=== PATIENT | male | born 1955 | race Hispanic/Latino ===

== ENCOUNTER 2019-02-06 10:08 | Day surgery (SDC) | payer OTHER ==
[~2019-02-06 10:08] MED LIST: SODIUM CHLORIDE 0.9% 1000 ML 1,000 ML IV SCH
[2019-02-06] MEDS ORDERED: LIDOCAINE MPF (2%) 20 MG/1 ML VIAL 5 ML ONE (11:00)
--- NOTE | 2019-02-06 11:21 | Anesthesia Consultation ---
Anesthesia Consult and Med Hx Date of service: 02/06/19 - Airway Anesthetic Teeth Evaluation: Good ROM Head & Neck: Adequate Mental/Hyoid Distance: Adequate Mallampati Class: Class II Intubation Access Assessment: Good - Pulmonary Exam CTA: Yes - Cardiac Exam Cardiac Exam: RRR - Pre-Operative Health Status ASA Pre-Surgery Classification: ASA3 Proposed Anesthetic Plan: MAC (DM, HTN , SZ, EDWIGE for MAC) - Cardiovascular System Hx Hypertension: Yes - Additional Comments Anesthesia Medical History Comments: DM, HTN, EDWIGE, SZ for MAC
--- NOTE | 2019-02-06 11:22 | Anesthesia Day of Surgery ---
Anesthesia Day of Surgery - Day of Surgery Patient Examined: Yes Patient H&P Reviewed: Yes Patient is NPO: Yes
[2019-02-06] MEDS ORDERED: PROPOFOL 200 MG/20 ML VIAL IV ONE ×2 (11:53)
--- NOTE | 2019-02-06 12:28 | Operative Report ---
PROCEDURE: Esophagogastroduodenoscopy with biopsy. INDICATIONS: This is a 63-year-old white male who has been having GERD symptoms. EGD was done to assess for the severity of the GERD problem. OPERATIVE PROCEDURE: The procedure was done after getting informed consent with MAC anesthesia. Instrument was passed through the hypopharynx into the esophagus, which showed [id number] erosive esophagitis. Biopsy was done from the distal esophagus. The stomach showed antral erosion and gastritis. No peptic ulcer disease was noted. Biopsy was also done from the gastric antrum, gastric body and angular incisura to rule out for H. pylori and atrophic gastritis. There was no gastric ulcers noted in the straight or the retroverted view. The pylorus is patent. The duodenum in the first and second portion appeared normal. There was minimal bleeding associated with the biopsy and no complications associated with the procedure. ASSESSMENT: Gastroesophageal reflux disease symptoms, mild to moderate, distal erosive esophagitis, gastric erosion, gastritis. PLAN: To treat the patient with PPI, to do a colonoscopy as part of colon polyp screening. The patient will be asked to avoid aspirin and aspirin-related products for the next few days. Otherwise, resume home medication and follow up in the office in 1-2 weeks' time. The procedure was done in the GI lab with assistance of the GI lab team, which included Ida Jimenez and the assistance of anesthesia. JOB# [id number] AKANKSHA/LOUISE
--- NOTE | 2019-02-06 12:30 | Procedure Note ---
Date of procedure: 02/06/19 Pre-op diagnosis: GERD/ Colon Polyp Screening/H/O Partial Colon Resection Post-op diagnosis: other (Mild to Moderate Erosive Esophagitis/Gastric Erosion and Gastritis/Solitary,Rectal Polyp (removed)/Scattered Diverticular Disease/Partial Left Colon Resection (for Diverticular Bleeding)) Procedure: EGD with Biopsy and Colonoscopy and Biopsy Anesthesia: [facility] [place] Surgeon: WHIT AMARO Estimated blood loss: minimal Pathology: list Specimen disposition: to lab Condition: stable Disposition: same day (Avoid aspirin and NSAID for 4 days,otherwise resume home medication. Treat with PPI,encourage fiber intake and follow up in 1 to 2 weeks ([phone]).)
--- NOTE | 2019-02-06 12:37 | Post Anesthesia Evaluation ---
- Post Anesthesia Evaluation Patient Participated: Yes Airway Patent: Yes Stable Respiratory Function: Yes Nausea/Vomiting: No Temp > 96.8F: Yes Pain Manageable: Yes Adequeate Hydration: Yes Anesthesia Complications: No Block Receding Appropriately: Not Applicable Patient on Ventilator: No Other Comments: Pt relates he felt the scope insertion and withdrawal for both procedures. [place] conversation. States no discomfort or anxiety from partial awareness. Described experience as "cool."
--- NOTE | 2019-02-06 12:58 | Operative Report ---
PROCEDURE: Colonoscopy with biopsy. INDICATIONS: This is a 63-year-old white male with an underlying history of diabetes mellitus and hypertension, prior history of partial colon resection because of bleeding from diverticular disease. EGD done prior to this procedure showed presence of [id number] erosive esophagitis and gastritis, but no peptic ulcer disease. EGD was done since the patient had complaints of GERD symptoms. Colonoscopy was done as part of colon polyp screening. DESCRIPTION OF PROCEDURE: Procedure was done after getting informed consent with MAC anesthesia. Initial rectal exam was unremarkable. Instrument was passed through the rectum onto the cecum, which was identified with ileocecal valve and the appendiceal orifice. No additional pathology was noted in the retroverted view. The terminal ileum was intubated showed normal mucosa. Visualization was fair to slightly poor. The mucosa was washed with copious amounts of water. There were scattered diverticula noted in the proximal colon, the transverse colon as well as the left colon. In the distal sigmoid, there were surgical signs noted with anastomosis, possibly secondary to removal of partial left colon resection because of his prior history of GI bleeding and the rectum showed 9 mm polyp that was removed by cold biopsy and the rectum did not show any hemorrhoids on the retroverted view. There was minimal bleeding from the biopsy sites and no complications associated with the procedure. ASSESSMENT: Colon polyp screening, solitary rectal polyp noted, removed by cold biopsy. Scattered diverticular disease throughout the colon, partial colon resection involving the sigmoid and the left colon. No internal hemorrhoids noted on the retroverted view. Again, there was minimal bleeding associated with the polypectomy. No complications associated with the procedure. The patient will be asked to avoid aspirin and aspirin-related products for the next 4 days, but otherwise resume home medications. Follow up in the office in 1-2 weeks' time and to encourage fiber supplements and also will be treated with PPI because of the EGD findings of gastric erosion, gastritis, and erosive esophagitis. The procedure was done in the GI lab with assistance of the GI lab team, which included Vinita LAY Regina and assistance of anesthesia. JOB# [id number] AKANKSHA/LOUISE
[2019-02-06 12:59] VITALS: BP 121/74
[2019-02-06] MEDS ORDERED: WATER FOR IRRIG STERILE 250 ML BOTTLE IR ONE (14:36)
== END 2019-02-06 10:09 | disposition home or self-care (01) ==
LOC: GIO 10:08
DX: Z12.11 Encounter for screening for malignant neoplasm of colon (principal); K62.1 Rectal polyp; K29.70 Gastritis, unspecified, without bleeding; K57.30 Diverticulosis of large intestine without perforation or abscess without bleeding; K21.0 Gastro-esophageal reflux disease with esophagitis; I10 Essential (primary) hypertension; E11.9 Type 2 diabetes mellitus without complications; Z72.89 Other problems related to lifestyle; Z79.899 Other long term (current) drug therapy; Z90.49 Acquired absence of other specified parts of digestive tract
CPT/HCPCS: 43239; 45380; 82962; 88305; 88342; J2704; J7030